=== PATIENT | female | born 1980 | race African-American/Black ===

== ENCOUNTER 2018-04-07 22:08 | Emergency (ER) | payer OTHER ==
[~2018-04-07] VITALS: Ht 162.6 cm; Wt 95.3 kg
[2018-04-07 22:18] VITALS: Ht 162.6 cm; Wt 95.3 kg
[2018-04-08 00:25] VITALS: BP 145/93
== END 2018-04-08 00:25 | disposition home or self-care (01) ==
LOC: ED 22:08
DX: K11.20 Sialoadenitis, unspecified (principal); J02.9 Acute pharyngitis, unspecified; K12.2 Cellulitis and abscess of mouth; M79.7 Fibromyalgia; M06.9 Rheumatoid arthritis, unspecified; Z87.39 Personal history of other diseases of the musculoskeletal system and connective tissue; Z88.8 Allergy status to other drugs, medicaments and biological substances
CPT/HCPCS: J0561; J1100